=== PATIENT | female | born 1945 | race Two or more races ===

== ENCOUNTER 2020-09-02 22:33 | Emergency (ER) | payer SELFPAY ==
[~2020-09-02 22:33] MED LIST: ASPI-482 PO; DIAZ5TAB4 PO; LISI20TA18 PO; METF10007 PO; NAPR-514 PO
[2020-09-02 23:43] VITALS: BP 141/63
[2020-09-03] MEDS ORDERED: NITR100C62 PO (00:49)
[2020-09-03] MEDS ORDERED: PHEN-318 PO (00:49)
--- NOTE | 2020-09-03 00:50 | PHYS DOC ---
Past Medical History Past Medical History: Cancer, Diabetes-Type II, Hypertension, Other Additional Past Medical Histor: UTERINE & OVARIAN CA Past Surgical History: Appendectomy, Hysterectomy, Oophorectomy, Other Additional Past Surgical Histo: I&D, Smoking Status: Never Smoker Alcohol Use: None Drug Use: None General Adult EDM: Chief Complaint: PAIN ON URINATION HPI: HPI: Patient is a 75 year old female with past medical history of diabetes presents with a chief complaint of suprapubic discomfort associated with dysuria and hematuria. Patient states symptoms been ongoing for 2 months. Patient was evaluated by her primary care physician who placed her on Augmentin. Patient states despite antibiotics symptoms have not improved. Review of Systems: Review of Systems: Constitutional: Denies fever or chills. [] Eyes: Denies change in visual acuity. [] HENT: Denies nasal congestion or sore throat. [] Respiratory: Denies cough or shortness of breath. [] Cardiovascular: Denies chest pain or edema. [] GI: Denies abdominal pain, nausea, vomiting, bloody stools or diarrhea. [] : Positive dysuria. [Positive pelvic pain] Musculoskeletal: Denies back pain or joint pain. [] Integument: Denies rash. [] Neurologic: Denies headache, focal weakness or sensory changes. [] Endocrine: Denies polyuria or polydipsia. [] Lymphatic: Denies swollen glands. [] Psychiatric: Denies depression or anxiety. [] Heart Score: C/O Chest Pain: N/A Risk Factors: Risk Factors: DM, Current or recent (<one month) smoker, HTN, HLP, family history of CAD, obesity. Risk Scores: Score 0 - 3: 2.5% MACE over next 6 weeks - Discharge Home Score 4 - 6: 20.3% MACE over next 6 weeks - Admit for Clinical Observation Score 7 - 10: 72.7% MACE over next 6 weeks - Early Invasive Strategies Allergies: Allergies: Allergies Coded Allergies Type Severity Reaction Last Updated Verified No Known Drug Allergies 11/26/13 No Physical Exam: PE: General: alert, no acute distress. Skin: warm, dry and intact. HENT: bilateral external ears normal, oropharynx moist, nose normal. Head:: Normocephalic, atraumatic. Neck: Trachea midline. Eyes: EOMI, Normal conjunctiva, No drainage CARDIOVASCULAR: Regular rate and rhythm RESPIRATORY: No respiratory distress Back: Full range of motion. Skin: Warm, dry, no erythema, no rash. MUSCULOSKELETAL: Full range of motion of bilateral upper and lower extremities. GASTROINTESTINAL: Abdomen soft without rebound or guarding. NEUROLOGICAL: Alert and noted to person, place and time. No neurological deficits observed Psychiatric: Cooperative. Normal judgment Current Patient Data: Vital Signs: Vital Signs Date Time Temp Pulse Resp B/P (MAP) Pulse Ox O2 Delivery O2 Flow Rate FiO2 09/02/20 23:43 98.8 82 18 141/63 (89) 97 Room Air 98.8 EKG: EKG: [] Radiology/Procedures: Radiology/Procedures: [] Course & Med Decision Making: Course & Med Decision Making Pertinent Labs and Imaging studies reviewed. (See chart for details) [] Patient was evaluated for chief complaint. Work-up consisted of laboratory analysis. Results reviewed and discussed with patient and family. Patient found to have urine consistent with urinary tract infection. While in the department treatment included IV liquid bolus, fentanyl for her pain, and Rocephin IV. Patient was discharged home with prescription of Macrobid 100 mg 1 tab twice daily for 10 days and Pyridium. [facility] Disclaimer: [facility] Disclaimer: This electronic medical record was generated, in whole or in part, using a voice recognition dictation system. Departure Departure Impression: Primary Impression: UTI (lower urinary tract infection) Additional Impression: Dysuria Disposition: 01 HOME / SELF CARE / HOMELESS Condition: STABLE Referrals: NO PCP (PCP) Patient Instructions: Urinary Tract Infection Scripts Phenazopyridine Hcl (PYRIDIUM) 200 Mg Tablet 1 TAB PO TID for urinary discomfort for 3 Days, #9 TAB 0 Refills Prov: DARLEEN DOTSON DO 09/03/20 Nitrofurantoin Monohyd/M-Cryst (MACROBID 100 MG CAPSULE) 100 Mg Capsule 1 CAP PO BID for 10 Days, #20 CAP 0 Refills Prov: DARLEEN DOTSON DO 09/03/20 DARLEEN DOTSON DO Sep 03, 2020 00:50
[2020-09-03] MEDS ORDERED: fentaNYL PF VIAL 100 MCG/2 ML VIAL IV ONE (01:38)
[2020-09-03] MEDS ORDERED: cefTRIAXone IM 1 GM VIAL IM ONE (01:38)
[2020-09-03] MEDS ORDERED: IV NORMAL SALINE 1000ML BAG 1,000 ML IV SCH (01:38)
[2020-09-03] MEDS ORDERED: fentaNYL PF VIAL 100 MCG/2 ML VIAL ONE (01:44)
[2020-09-03] MEDS ORDERED: cefTRIAXone IV Push 1 GM VIAL. IVP ONE (02:00)
[2020-09-03 07:47] LABS: BILIRUBIN,URINE NEGATIVE (NEG); COLOR,URINE RED; NITRITE,URINE NEGATIVE (NEG); PROTEIN,URINE 100 mg/dL (NEG-TRACE); UROBILINOGEN,URINE 0.2 mg/dL (0.2 mg/dL)
[2020-09-03 07:49] LABS: BACTERIA,URINE MOD /HPF (0-FEW); CLARITY,URINE CLEAR; RBC,URINE TNTC /HPF (0-2); WBC,URINE TNTC /HPF (0-4)
[2020-09-03 08:23] LABS: HEMATOCRIT 28.7 % (36.0-47.0); HEMOGLOBIN 9.6 g/dL (12.0-15.5); MEAN CORPUSCULAR HEMOGLOBIN 30 pg (25-35); MEAN CORPUSCULAR HGB CONC 33 g/dL (31-37); MEAN CORPUSCULAR VOLUME 90 fL (79-100); PLATELET COUNT 249 x10^3/uL (140-400); RED BLOOD COUNT 3.18 x10^6/uL (3.50-5.40); RED CELL DISTRIBUTION WIDTH 14.1 % (11.5-14.5); WHITE BLOOD COUNT 10.9 x10^3/uL (4.0-11.0)
[2020-09-03 08:24] LABS: BASO % 0 % (0-3); EOS % 1 % (0-3); LYMPH % 11 % (24-48); MONO % 5 % (0-9); NEUT % 83 % (31-73)
[2020-09-03 08:54] LABS: ALBUMIN 3.1 g/dL (3.4-5.0); ALBUMIN/GLOBULIN RATIO 0.6 (1.0-1.7); CALCIUM 8.4 mg/dL (8.5-10.1); CREATININE 1.2 mg/dL (0.6-1.0); GFR 43.9; POTASSIUM 4.8 mmol/L (3.5-5.1); TOTAL BILIRUBIN 0.6 mg/dL (0.2-1.0); TOTAL PROTEIN 7.9 g/dL (6.4-8.2)
== END 2020-09-03 00:50 | disposition home or self-care (01) ==
LOC: ER 22:33
DX: N39.0 Urinary tract infection, site not specified (principal); E11.9 Type 2 diabetes mellitus without complications; I10 Essential (primary) hypertension; Z90.89 Acquired absence of other organs; Z90.710 Acquired absence of both cervix and uterus; Z90.722 Acquired absence of ovaries, bilateral
CPT/HCPCS: 36415; 80053; 81001; 85025; 99283

== ENCOUNTER 2021-02-03 19:16 | Emergency (ER) | payer SELFPAY ==
[~2021-02-03] VITALS: Ht 162.6 cm; Wt 100.0 kg
[~2021-02-03 19:16] MED LIST changes: +NITR100C62 PO; +PHEN-318 PO
--- NOTE | 2021-02-04 00:37 | PHYS DOC ---
Past Medical History Past Medical History: Cancer, Diabetes-Type II, Hypertension, Other Additional Past Medical Histor: UTERINE & OVARIAN CA Past Surgical History: Appendectomy, Hysterectomy, Oophorectomy, Other Additional Past Surgical Histo: I&D, Smoking Status: Never Smoker Alcohol Use: None Drug Use: None General Adult EDM: Chief Complaint: HAND PROBLEM HPI: HPI: Patient is a 75 year old female with a history of diabetes type 2, hypertension, who presents the ED today with moderate swelling to the left hand that began on Wednesday last week after she fell at [employer]. Patient denies any loss of consciousness. Review of Systems: Review of Systems: Constitutional: Denies fever or chills. [] : Denies dysuria. [] Musculoskeletal: Reports left hand swelling Integument: Denies rash. [] Neurologic: Denies headache, focal weakness or sensory changes. [] Psychiatric: Denies depression or anxiety. [] Heart Score: C/O Chest Pain: N/A Risk Factors: Risk Factors: DM, Current or recent (<one month) smoker, HTN, HLP, family history of CAD, obesity. Risk Scores: Score 0 - 3: 2.5% MACE over next 6 weeks - Discharge Home Score 4 - 6: 20.3% MACE over next 6 weeks - Admit for Clinical Observation Score 7 - 10: 72.7% MACE over next 6 weeks - Early Invasive Strategies Allergies: Allergies: Allergies Coded Allergies Type Severity Reaction Last Updated Verified No Known Drug Allergies 11/26/13 No Physical Exam: PE: Constitutional: Well developed, well nourished, no acute distress, non-toxic appearance. [] Skin: Warm, dry, no erythema, no rash. [] Back: No tenderness, no CVA tenderness. [] Extremities: Left hand with moderate swelling on the dorsal aspect as well as some slight swelling on the palmar aspect. There is bruising on the palmar as pect of the left hand, there is also bruising on the dorsal aspect of the left hand. Tenderness on the palmar aspect of the left hand. Full range of motion to the left hand and fingers. Adequate radial, medial, ulnar sensation to the left hand. +2 left radial pulse. Cap refill less than 2 seconds to left fingers Neurologic: Alert and oriented X 3, normal motor function, normal sensory function, no focal deficits noted. [] Psychologic: Affect normal, judgement normal, mood normal. [] Current Patient Data: Vital Signs: Vital Signs Date Time Temp Pulse Resp B/P (MAP) Pulse Ox O2 Delivery O2 Flow Rate FiO2 02/03/21 19:42 97.9 72 20 179/72 (107) 98 Room Air 97.9 EKG: EKG: [] Radiology/Procedures: Radiology/Procedures: []PROCEDURE: HAND LEFT 3V XR HAND_LEFT 3 VIEWS DATE: 02/04/2021 12:37 AM INDICATION: fall pain COMPARISON: None. FINDINGS: Acute fracture at the base of the fifth proximal phalanx with extension into the MCP joint and slight apex anterior angulation. Acute fracture at the base of the fourth proximal phalanx with slight apex anterior angulation. Diffuse soft tissue swelling. IMPRESSION: Acute fractures of the fourth and fifth proximal phalanges, with intra-articular extension at the fifth Electronically signed by: Kaylee Brunner MD (02/04/2021 12:56 AM) [facility] DICTATED and SIGNED BY: KAYLEE BRUNNER MD DATE: 02/04/21 [id number] 0 Course & Med Decision Making: Course & Med Decision Making Pertinent Labs and Imaging studies reviewed. (See chart for details) This is a 75-year-old female patient presented to the ED today with left hand swelling that began on Wednesday after she fell. Left hand x-rays interpreted by radiologist were noted for acute fractures of the fourth and fifth proximal phalanges, with intra-articular extension at the fifth Ulnar gutter splint ordered. Follow-up with orthopedic doctor. Contact information provided to patient's grand son and patient. Patient does not speak Czech, grandson is interpreting Jerion Disclaimer: Rahul Disclaimer: This electronic medical record was generated, in whole or in part, using a voice recognition dictation system. Departure Departure Impression: Primary Impression: Fracture of phalanx of ring finger Qualified Codes: S62.615A - Displaced fracture of proximal phalanx of left ring finger, initial encounter for closed fracture Additional Impressions: Fracture of phalanx of little finger Qualified Codes: S62.617A - Displaced fracture of proximal phalanx of left little finger, initial encounter for closed fracture Fall Qualified Codes: W19.XXXA - Unspecified fall, initial encounter Disposition: HOME / SELF CARE / HOMELESS Condition: STABLE Referrals: ANGEL SALCEDO MD (PCP) DESTINI HICKS Jr. DO call him in the morning and set up a follow up appointment Patient Instructions: Finger Fracture (Phalangeal)-[facility] Additional Instructions: You have a fracture of the left fourth and fifth fingers. Please contact the provided orthopedic doctor in the morning and set up a follow-up appointment. Try to ice and elevate the extremity. CARMELO LEWIS APRN Feb 04, 2021 00:37
--- NOTE | 2021-02-04 00:58 | RAD ---
XR HAND_LEFT 3 VIEWS DATE: 02/04/2021 12:37 AM INDICATION: fall pain COMPARISON: None. FINDINGS: Acute fracture at the base of the fifth proximal phalanx with extension into the MCP joint and slight apex anterior angulation. Acute fracture at the base of the fourth proximal phalanx with slight apex anterior angulation. Diffuse soft tissue swelling. IMPRESSION: Acute fractures of the fourth and fifth proximal phalanges, with intra-articular extension at the fif th Electronically signed by: Sam Brunner MD (02/04/2021 12:56 AM) [facility]
[2021-02-04 01:32] VITALS: BP 175/84
== END 2021-02-04 01:36 | disposition home or self-care (01) ==
LOC: ER 19:16
DX: S62.615A Displaced fracture of proximal phalanx of left ring finger, initial encounter for closed fracture (principal); S62.617A Displaced fracture of proximal phalanx of left little finger, initial encounter for closed fracture; E11.9 Type 2 diabetes mellitus without complications; I10 Essential (primary) hypertension; W18.39XA Other fall on same level, initial encounter; Y93.89 Activity, other specified; Y92.89 Other specified places as the place of occurrence of the external cause; Y99.8 Other external cause status
CPT/HCPCS: 29125; 73130; 99284